=== PATIENT | male | born 1975 | race African-American/Black ===

== ENCOUNTER 2017-09-15 23:19 | Emergency (ER) | payer SELFPAY ==
[2017-09-15] MEDS ORDERED: Ibuprofen 800 MG TAB ONE (23:34)
== END 2017-09-15 23:53 | disposition short-term general hospital (02) ==
LOC: NAV ERS 23:19
DX: S29.011A Strain of muscle and tendon of front wall of thorax, initial encounter (principal); F17.290 Nicotine dependence, other tobacco product, uncomplicated; Z71.6 Tobacco abuse counseling; X50.0XXA Overexertion from strenuous movement or load, initial encounter
CPT/HCPCS: 93005; 99406

== ENCOUNTER 2018-08-28 06:04 | Emergency (ER) | payer SELFPAY ==
[2018-08-28] MEDS ORDERED: predniSONE 20 MG TAB ONE (06:52)
== END 2018-08-28 07:05 | disposition home or self-care (01) ==
LOC: NAV ERS 06:04
DX: L23.9 Allergic contact dermatitis, unspecified cause (principal); F17.200 Nicotine dependence, unspecified, uncomplicated
CPT/HCPCS: 99283; J7512

== ENCOUNTER 2021-12-05 21:53 | Emergency (ER) | payer SELFPAY | END 2021-12-05 22:45 | disposition home or self-care (01) | LOC: NAV ERS 21:53 | DX: H81.10 Benign paroxysmal vertigo, unspecified ear (principal); F17.200 Nicotine dependence, unspecified, uncomplicated | CPT/HCPCS: 99283 ==

== ENCOUNTER → 2022-02-16 | Emergency (ER) | payer SELFPAY ==
[~2022-02-16] MED LIST: Ibuprofen 800 MG TAB ONE
== END ==
LOC: NAV ERS 23:48
DX: S62.232A Other displaced fracture of base of first metacarpal bone, left hand, initial encounter for closed fracture (principal); F17.290 Nicotine dependence, other tobacco product, uncomplicated; W22.8XXA Striking against or struck by other objects, initial encounter
CPT/HCPCS: 29125

== ENCOUNTER 2024-04-15 17:47 | Emergency (ER) | payer SELFPAY ==
[2024-04-15] MEDS ORDERED: Ibuprofen 800 MG TAB ONE (18:18)
[2024-04-15] MEDS ORDERED: Ondansetron ODT 4 MG TAB ONE ×2 (18:52→18:55)
== END 2024-04-15 19:35 | disposition home or self-care (01) ==
LOC: NAV ERS 17:47
DX: J11.1 Influenza due to unidentified influenza virus with other respiratory manifestations (principal); F17.210 Nicotine dependence, cigarettes, uncomplicated
CPT/HCPCS: 87428; 99283; Q0162